=== PATIENT | female | born 1990 | race Hispanic/Latino ===

== ENCOUNTER 2019-03-28 08:34 | Day surgery (SDC) | payer MEDICAID, OTHER ==
--- NOTE | 2019-03-27 16:36 | History and Physical Report ---
History of Present Illness Date of examination: 03/25/19 History of present illness: his patient underwent Paragard IUD removal by Nurse practitioner in our office on 01/17/2019. The device appeared to intact except for a small piece end piece of the top. Ultrasound one on 03/11/2019 revealed no evidence of retained IUD in cavity . There was a smallt echogenic area in the myometrium Patient desires a confirmatory exam and removal if retained IUD is present. Vital Signs: Patient Profile: 28 Years Old Female LMP: 02/2019 Height: 62.5 inches (158.75 cm) Weight: 141 pounds (64.09 kg) BMI: 25.38 BSA: 1.66 Menstrual History: LMP (date): 02/2019 Current Method of Contraception: Past History : 3 Term Births: 2 Premature Births: 0 Living Children: 2 Para: 2 Mult. Births: 0 Prev : 0 Aborta: 1 Elect. Ab: 0 Spont. Ab: 1 Ectopics: 0 # 1 Delivery date: 2010 Weeks Gestation: 18 Delivery type: SAB Delivery location: [facility] [place] Comments: IUFD labor induction # 2 Delivery date: 2011 Weeks Gestation: 40 labor: no Delivery type: Delivery location: [facility] Infant Sex: Female weight: 7 lbs 4 oz Comments: Delivered with Dr. Quiroga Retained Placenta - D & C with 1 unit PRBCs # 3 Delivery date: 10/30/2013 Weeks Gestation: 41 Delivery type: Vaginal Hours of labor: 10 Anesthesia type: epidural Delivery location: [facility] Infant Sex: female weight: 7.44 Name: Delores Comments: Postdates induction [employer] History Uterine Surgery (not C/S): negative Operations: D&C: (2011) Anesthesia Complications: negative Abnormal PAP: negative Uterine Anomaly: negative [place] Exposure: negative Infertility: negative Infection History HIV Risk Eval: no Hep B Immunized: no TB exposure: no Personal hx. of genital herpes: no Partner hx. of genital herpes: no Rash/viral illness since LMP: no Hx of STD: HPV Current Allergies (reviewed today): No known allergies Past Medical History: Depression Blood Transfusion Past Surgical History: D&C: (2011) Family History Summary: Family History of Coronary Heart Disease Family History of CVA or Stroke - father Family History of Hypertension - father No Family History of Breast Cancer No Family History of Cervical Cancer No Family History of Colon Cancer No Family History of Diabetes No Family History of Ovarvian Cancer No Family History of DVT/PE on OCP Social History: Patient is single Warehouse Smoking History: Patient is a former smoker. Stopped 2017 Risk Factors: Smoked Tobacco Use: Former smoker Smokeless Tobacco Use: Never Passive smoke exposure: no Drug use: no HIV high-risk behavior: no Alcohol use: yes Exercise: no Seatbelt use: 100 % Review of Systems General Denies fever, chills, sweats, anorexia, fatigue, weakness, malaise, weight loss and sleep disorder. Denies vaginal discharge, incontinence, dysuria, hematuria, urinary frequency, amenorrhea, menorrhagia, abnormal vaginal bleeding, pelvic pain, genital sores, decreased libido, painful periods, painful sex, urinary urgency, hot flashes, vaginal dryness, vaginal itching and vaginal odor. CV Denies chest pains, palpitations, syncope, dyspnea on exertion, orthopnea, PND and peripheral edema. Resp Denies cough, dyspnea at rest, excessive sputum, hemoptysis, wheezing and pleurisy. GI Denies nausea, vomiting, diarrhea, constipation, change in bowel habits, abdominal pain, melena, hematochezia, jaundice, gas/bloating, indigestion/heartburn, dysphagia and odynophagia. Breast Denies left breast lump, right breast lump, nipple discharge, bloody discharge from nipple, breast pain, abnormal mammogram and breast enlargement. Psych Denies depression, anxiety, irritability and mood swings. Past History Past Medical History: other (SEE HPI) Past Surgical History: Other (SEE HPI) Social history: full code, other (SEE HPI) Family history: other (SEE HPI) Medications and Allergies Allergies Allergy/AdvReac Type Severity Reaction Status Date / Time No Known Allergies Allergy Verified 03/26/19 11:59 Home Medications Medication Instructions Recorded Confirmed Last Taken Type Dextroamphetamine/Amphetamine 25 mg PO DAILY 03/26/19 03/26/19 Unknown History [Dextroamp-Amphet ER 25 mg Cap] Sertraline [Zoloft] 100 mg PO QDAY 03/26/19 03/26/19 Unknown History Review of Systems Constitutional: other (SEE HPI) Exam - Physical Exam Narrative exam: HEENT: normocephalic, no lesions or deformities Chest: respiratory effort normal, clear to auscultation CV: regular, normal S1-S2, no murmur, no rub, no gallop Abdomen: soft, non-tender, no masses, bowel sounds normal Neuro: no gross anomalities Extremities: normal alignment, no joint enlargement, crepitus, masses or tenderness; normal tone and strength [employer] Exams Vulva/Vagina: normal appearance, no discharge, lesions. No evidence of cystocele or rectocele. Cervix: normal appearance, no lesions, no discharge Uterus: normal position, midline, mobile Adnexae: no masses or tenderness Rectovaginal: exam defered Assessment and Plan - Patient Problems (1) Displacement of intrauterine contraceptive device, sequela Current Visit: No Status: Acute Plan to address problem: Indications for and description of the hysteroscopy given. .Discussed risk of surgery including infection, bleeding and risk of perforating her uterus. Patient informed that normal finding maybr present. Questions answered. Patient understands and desires to proceed (2) Depression Current Visit: No Status: Acute Qualifiers: Depression Type: unspecified Qualified Code(s): F32.9 - Major depressive disorder, single episode, unspecified - Addendum Date: 03/28/19 Note: Patient surgery canceled due to patient complaining of pain with inspiration due to previous fall. - Discharge Diagnoses (1) Displacement of intrauterine contraceptive device, sequela Status: Acute (2) Depression Status: Acute Qualifiers: Depression Type: unspecified Qualified Code(s): F32.9 - Major depressive disorder, single episode, unspecified
--- NOTE | 2019-03-28 10:28 | Event Note ---
Date: 03/28/19 Patient examined in pre-op holding area prior to scheduled elective hysteroscopy procedure. She reports that she fell from standing on a dryer at home approx 2wks ago, landing on her left side on the kitchen floor. She did not hit her head and had no loss of consciousness. Since then, she has had worsening pain to the left side of the chest wrapping from the sternum to the spine. Pain is worse with inspiration, not improved with OTC NSAIDs, and prevents her from sleeping. There is no shortness of breath. Vitals are normal and exam is positive for tenderness to palpation over the left posterior torso. No obvious deformity noted. Given history of trauma and elective nature of procedure, case will be postponed at this time. She was instructed to see PCP vs urgent care to have further evaluation for possible musculoskeletal injury. Discussed with surgeon, whom is in agreement. Patient was d/c'd from preop in no distress. Yuliet Donaldson MD Anesthesiology
== END 2019-03-28 08:35 | disposition home or self-care (01) ==
LOC: OR 08:34
PROVIDERS: ATTEND Obstetrics & Gynecology
DX: T83.32XA Displacement of intrauterine contraceptive device, initial encounter (principal); F32.9 Major depressive disorder, single episode, unspecified; G43.909 Migraine, unspecified, not intractable, without status migrainosus; Z53.8 Procedure and treatment not carried out for other reasons; Z87.891 Personal history of nicotine dependence; Z79.899 Other long term (current) drug therapy; Z87.442 Personal history of urinary calculi; Z72.89 Other problems related to lifestyle; Z98.890 Other specified postprocedural states; Z83.3 Family history of diabetes mellitus; Z82.49 Family history of ischemic heart disease and other diseases of the circulatory system